=== PATIENT | male | born 1950 | race Caucasian/White ===

== ENCOUNTER 2018-07-30 08:59 | Day surgery (SDC) | payer MEDICARE, OTHER ==
[~2018-07-30] VITALS: Ht 165.1 cm; Wt 80.7 kg
[2018-07-30] MEDS ORDERED: fentaNYL 0.05 MG/ML VIAL ONE (10:54)
[2018-07-30] MEDS ORDERED: MIDAZOLAM 2 MG/2 ML VIAL ONE (10:55)
[2018-07-30] MEDS ORDERED: LIDOCAINE 2% 100 MG/5 ML UJET TP ONE (10:55)
[2018-07-30] MEDS ORDERED: fentaNYL 0.05 MG/ML VIAL IVP ONE (13:15)
[2018-07-30] MEDS ORDERED: MIDAZOLAM 2 MG/2 ML VIAL IVP ONE (13:15)
== END 2018-07-30 12:45 | disposition home or self-care (01) ==
LOC: MTU 08:59 → MDS 08:59
PROVIDERS: ATTEND Internal Medicine Gastroenterology
DX: Z12.11 Encounter for screening for malignant neoplasm of colon (principal); D12.3 Benign neoplasm of transverse colon; D12.4 Benign neoplasm of descending colon; K64.8 Other hemorrhoids; K57.30 Diverticulosis of large intestine without perforation or abscess without bleeding; I10 Essential (primary) hypertension; E11.9 Type 2 diabetes mellitus without complications; E78.00 Pure hypercholesterolemia, unspecified; E66.9 Obesity, unspecified; Z68.29 Body mass index [BMI] 29.0-29.9, adult; Z79.899 Other long term (current) drug therapy; Z95.1 Presence of aortocoronary bypass graft; Z87.442 Personal history of urinary calculi; Z90.49 Acquired absence of other specified parts of digestive tract; Z98.890 Other specified postprocedural states; Z80.0 Family history of malignant neoplasm of digestive organs
CPT/HCPCS: 45385; J2250; J3010

== ENCOUNTER 2021-08-23 07:09 | Day surgery (SDC) | payer OTHER ==
[~2021-08-23] VITALS: Ht 167.6 cm; Wt 81.6 kg
[2021-08-23] MEDS ORDERED: fentaNYL citrate 0.05 MG/ML VIAL ONE (08:31)
[2021-08-23] MEDS ORDERED: LIDOCAINE 2% 100 MG/5 ML UJET TP ONE (08:31)
[2021-08-23] MEDS ORDERED: fentaNYL citrate 0.05 MG/ML VIAL IVP ONE (09:35)
== END 2021-08-23 09:48 | disposition home or self-care (01) ==
LOC: MDS 07:09 → MMU 07:10 → MDS 09:48
PROVIDERS: ATTEND Internal Medicine Gastroenterology
DX: Z12.11 Encounter for screening for malignant neoplasm of colon (principal); D12.0 Benign neoplasm of cecum; D12.2 Benign neoplasm of ascending colon; D12.3 Benign neoplasm of transverse colon; K57.30 Diverticulosis of large intestine without perforation or abscess without bleeding; Z86.010 Personal history of colon polyps; I10 Essential (primary) hypertension; E11.9 Type 2 diabetes mellitus without complications; Z20.822 Contact with and (suspected) exposure to COVID-19; Z79.899 Other long term (current) drug therapy
CPT/HCPCS: 45385; 87426; J3010